=== PATIENT | female | born 1995 | race Caucasian/White ===

== ENCOUNTER 2021-08-19 10:37 | Emergency (ER) | payer MEDICAID ==
[~2021-08-19] VITALS: Ht 157.5 cm; Wt 81.6 kg
[2021-08-19 10:50] VITALS: BP 117/70
--- NOTE | 2021-08-19 11:00 | NUR ---
[facility] FROM [facility] C/O VAGINAL ITCHING AND GREENISH DISCHARGE [id number]. THE PATIENT DENIES PAIN. WILL CONTINUE TO MONITOR THE PATIENT.
--- NOTE | 2021-08-19 12:20 | NUR ---
[facility] SENT TO LAB
[2021-08-19 12:32] LABS: BILIRUBIN,URINE NEGATIVE (NEGATIVE); COLOR,URINE YELLOW (YELLOW); LEUKOCYTE ESTERASE ,URINE LARGE (NEGATIVE); NITRITE, URINE NEGATIVE (NEGATIVE); PROTEIN,URINE NEGATIVE (NEGATIVE); UGLUCOSE NEGATIVE (NEGATIVE); UROBILINOGEN,URINE 0.2 EU/dL (0.2)
[2021-08-19 12:35] LABS: BACTERIA,URINE Many /HPF (None Seen)
[2021-08-19 12:36] LABS: WBC,URINE 21-50 /HPF (0-3)
--- NOTE | 2021-08-19 13:22 | NUR ---
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 THE PATIENT AGREED. THOMPSON TEL [phone]
[2021-08-19] MEDS ORDERED: FLUC150T PO (15:51)
[2021-08-19] MEDS ORDERED: CEPH500C2 PO (15:51)
[2021-08-19] MEDS ORDERED: CEFTRIAXONE 500 MG VIAL IM ONE (16:00)
[2021-08-19] MEDS ORDERED: DOXY-326 PO (16:02)
[2021-08-19] MEDS ORDERED: LIDOCAINE /MPF 1% VIAL 5 ML VIAL ONE (16:27)
[2021-08-19] MEDS ORDERED: CEFTRIAXONE 500 MG VIAL ONE (16:27)
--- NOTE | 2021-08-19 16:50 | NUR ---
Patient discharged to home in stable condition. Written and verbal after care instructions given. Patient verbalizes understanding of instruction.
== END 2021-08-19 16:50 | disposition home or self-care (01) ==
LOC: ER 10:53
DX: N89.8 Other specified noninflammatory disorders of vagina (principal); Z87.440 Personal history of urinary (tract) infections; Z79.899 Other long term (current) drug therapy
CPT/HCPCS: 81001; 87086; 87210; 87491; 87591; 96372; 99283; J0696; J3490

== ENCOUNTER 2021-08-22 17:58 | Emergency (ER) | payer MEDICAID ==
[~2021-08-22] VITALS: Ht 157.5 cm; Wt 77.1 kg
[~2021-08-22 17:58] MED LIST: CEPH500C2 PO; DOXY-326 PO; FLUC150T PO
--- NOTE | 2021-08-22 18:19 | NUR ---
urine collected and sent to the lab
[2021-08-22 19:06] LABS: BILIRUBIN,URINE NEGATIVE (NEGATIVE); COLOR,URINE YELLOW (YELLOW); LEUKOCYTE ESTERASE ,URINE NEGATIVE (NEGATIVE); NITRITE, URINE NEGATIVE (NEGATIVE); PH,URINE 5.5 (5.0-8.0); PROTEIN,URINE NEGATIVE (NEGATIVE); UGLUCOSE NEGATIVE (NEGATIVE); UROBILINOGEN,URINE 0.2 EU/dL (0.2)
[2021-08-22] MEDS ORDERED: ONDANSETRON 4 MG TAB.RAPDIS ONE (19:10)
[2021-08-22] MEDS ORDERED: KETOROLAC TROMETHAMINE INJ 30 MG/ML VIAL ONE (19:10)
[2021-08-22] MEDS: ONDANSETRON 4 MG TAB.RAPDIS SL ONE (19:15)
[2021-08-22 19:21] LABS: CALCIUM, SERUM 8.8 mg/dL (8.5-10.1); CREATININE 0.9 mg/dL (0.6-1.3)
--- NOTE | 2021-08-22 19:23 | NUR ---
REPORT GIVEN TO NURSE MAYA FOR [facility]
--- NOTE | 2021-08-22 19:33 | NUR ---
RECEIVED PATIENT [id number]. PATIENT STILL IN PAIN. SIGNED DISCLAIMER THAT SHE IS NOT . VITALS CHECKED. -SOB, -CP. NEEDS MET.
[2021-08-22 19:34] LABS: ALBUMIN 3.6 g/dL (3.4-5.0); BILIRUBIN,DIRECT 0.1 mg/dL (0.0-0.2); BILIRUBIN,TOTAL 0.6 mg/dL (0.2-1.0); TOTAL PROTEIN, SERUM 7.4 g/dL (6.4-8.2)
[2021-08-22 19:39] LABS: BASOPHILS % (AUTO) 0.3 % (0.0-2.0); EOSINOPHILS % (AUTO) 1.9 % (0.0-6.0); HEMATOCRIT 34 % (33-45); HEMOGLOBIN 11.1 g/dL (11.5-14.8); LYMPHOCYTES # (AUTO) 2.2 K/uL (0.8-4.8); LYMPHOCYTES % (AUTO) 22.8 % (20.0-44.0); MEAN CORPUSCULAR HGB CONC 32 g/dl (31.0-36.0); MEAN CORPUSCULAR VOLUME 79 fL (82-100); MONOCYTES # (AUTO) 0.7 K/uL (0.1-1.30); MONOCYTES % (AUTO) 7.9 % (2.0-12.0); NEUTROPHILS # (AUTO) 6.4 K/uL (1.8-8.9); NEUTROPHILS % (AUTO) 67.1 % (43.0-81.0); PLATELET COUNT (AUTO) 256 K/uL (150-450); RED BLOOD CELL COUNT(AUTO) 4.35 MIL/uL (4.0-5.2); WHITE BLOOD COUNT (AUTO) 9.5 K/uL (4.3-11.0)
[2021-08-22] MEDS: KETOROLAC TROMETHAMINE INJ 30 MG/ML VIAL IM ONE (19:45)
--- NOTE | 2021-08-22 20:21 | NUR ---
Patient discharged to home in stable condition. Written and verbal after care instructions given. Patient verbalizes understanding of instruction.
[2021-08-22 20:22] VITALS: BP 123/87
== END 2021-08-22 20:23 | disposition home or self-care (01) ==
LOC: ER 18:06
DX: K80.20 Calculus of gallbladder without cholecystitis without obstruction (principal); R10.10 Upper abdominal pain, unspecified; Z60.2 Problems related to living alone; Z79.899 Other long term (current) drug therapy
CPT/HCPCS: 36415; 76700; 80048; 80076; 81003; 83690; 84703; 85025; 96372; 99284; J1885; Q0162